=== PATIENT | male | born 1980 | race Caucasian/White ===

== ENCOUNTER 2019-09-22 12:46 | Emergency (ER) | payer BC ==
[~2019-09-22] VITALS: Ht 175.3 cm; Wt 122.5 kg
[2019-09-22 12:52] VITALS: BP 185/110
--- NOTE | 2019-09-22 13:06 | NUR ---
39 Y/O M C/O RIGHT FLANK PAIN. PT STATES HE FEELS HE HAS A KIDNEY STONE, PREVIOUS KIDNEY STONES IN THE PAST. NO PAIN WITH URINATION, OR BLOOD X1 DAY. PT POSITIONED FOR COMFORT, BED LOWERED, SIDE RAIL IN PLACE. FRIEND AT BEDSIDE. PRISCILLA
[2019-09-22] MEDS ORDERED: KETOROLAC 30 MG/ML VIAL IM/IVP ONE (13:15)
[2019-09-22] MEDS ORDERED: NACL 0.9% 1,000 ML IV ONE (13:15)
[2019-09-22] MEDS ORDERED: ONDANSETRON 4 MG/2 ML VIAL IVP ONE (13:15)
[2019-09-22] MEDS ORDERED: MORPHINE SULFATE 4 MG/ML SYR IVP ONE (13:15)
--- NOTE | 2019-09-22 13:24 | NUR ---
UTRASOUND AT BEDSIDE.
[2019-09-22 14:14] LABS: BASOPHILS % (AUTO) 0.6 % (0.0-2.0); EOSINOPHILS # (AUTO) 0.1 K/uL (0-0.4); EOSINOPHILS % (AUTO) 0.8 % (0.0-4.0); HEMATOCRIT 42.4 % (36-52); HEMOGLOBIN 14.4 g/dL (12.0-18.0); LYMPHOCYTES # (AUTO) 1.7 K/uL (2.0-11.5); LYMPHOCYTES % (AUTO) 20.7 % (20.5-51.1); MEAN CORPUSCULAR HEMOGLOBIN 33 pg (27-31); MEAN CORPUSCULAR HGB CONC 34 g/dL (33-37); MEAN CORPUSCULAR VOLUME 98.1 fL (80-94); MONOCYTES # (AUTO) 0.5 K/uL (0.8-1.0); MONOCYTES % (AUTO) 6.5 % (1.7-9.3); NEUTROPHILS % (AUTO) 71.4 % (42.2-75.2); PLATELET COUNT (AUTO) 255 K/uL (140-450); RED BLOOD CELL COUNT(AUTO) 4.32 MIL/uL (4.20-6.10); RED CELL DISTRIBUTION WIDTH 12.5 % (11.6-13.7); WHITE BLOOD COUNT (AUTO) 8.4 K/uL (4.8-10.8)
[2019-09-22 14:16] LABS: APPEARANCE,URINE CLEAR (CLEAR); BILIRUBIN,URINE 1+ (NEGATIVE); BLOOD, URINE 3+ (NEGATIVE); LEUKOCYTE ESTERASE ,URINE NEGATIVE (NEGATIVE); NITRITE, URINE NEGATIVE (NEGATIVE); UGLUCOSE NEGATIVE (NEGATIVE)
[2019-09-22 14:19] LABS: COLOR,URINE AMBER (YELLOW)
[2019-09-22 14:27] LABS: CALCIUM OXALATE CRYSTALS,UR 0-10 /HPF (None Seen); WBC,URINE 0-5 /HPF (0-5)
[2019-09-22 14:29] LABS: ANION GAP 9.5 (8-16); CARBON DIOXIDE 29.5 mmol/L (21-32)
[2019-09-22 14:35] LABS: ALBUMIN 3.8 g/dL (3.4-5.0); TOTAL BILIRUBIN 0.6 mg/dL (0.0-1.0)
[2019-09-22 15:32] VITALS: BP 145/90
--- NOTE | 2019-09-22 15:33 | NUR ---
Patient discharged with v/s stable. Written and verbal after care instructions given and explained. Patient alert, oriented and verbalized understanding of instructions. Ambulatory with steady gait. All questions addressed prior to discharge. ID band removed. Patient advised to follow up with PMD. Rx of FLOMAX/PERCOCET/IBUPROFEN/ZOFRAN given. Patient educated on indication of medication including possible reaction and side effects. Opportunity to ask questions provided and answered.
== END 2019-09-22 15:33 | disposition home or self-care (01) ==
LOC: MED 12:46
DX: N20.0 Calculus of kidney (principal)
CPT/HCPCS: 36415; 76770; 80053; 81001; 85025; 96374; 96375; 99284; J1885; J2270; J2405; J7030; Q0092

== ENCOUNTER 2021-08-08 17:39 | Inpatient (IN) | payer BC ==
[~2021-08-08] VITALS: Ht 175.3 cm; Wt 129.3 kg
[2021-08-08 17:49] VITALS: BP 158/96
--- NOTE | 2021-08-08 17:58 | NUR ---
40 Y/O M C/O R LOWER BACK PAIN 06/25. PATIENT SAID HE PASSED A LOT OF KIDNEY STONES IN THE PAST 2 DAYS. NKA.
--- NOTE | 2021-08-08 18:18 | NUR ---
PT TO [facility] W/O ASST UA CUP GIVEN
[2021-08-08] MEDS ORDERED: NACL 0.9% 1,000 ML IV ONE ×3 (18:20→22:10)
--- NOTE | 2021-08-08 18:28 | NUR ---
LAB AT BEDSIDE.
[2021-08-08] MEDS ORDERED: MORPHINE SULFATE 4 MG/ML SYR IVP ONE ×3 (18:30→22:15)
[2021-08-08] MEDS ORDERED: ONDANSETRON 4 MG/2 ML VIAL IVP ONE (18:30)
[2021-08-08 18:37] LABS: APPEARANCE,URINE CLEAR (CLEAR); BILIRUBIN,URINE NEGATIVE (NEGATIVE); BLOOD, URINE 3+ (NEGATIVE); COLOR,URINE YELLOW (YELLOW); LEUKOCYTE ESTERASE ,URINE NEGATIVE (NEGATIVE); NITRITE, URINE NEGATIVE (NEGATIVE); UGLUCOSE NEGATIVE (NEGATIVE)
[2021-08-08 18:37] LABS: BASOPHILS % (AUTO) 0.5 % (0.0-2.0); EOSINOPHILS % (AUTO) 0.4 % (0.0-4.0); HEMOGLOBIN 14.7 g/dL (12.0-18.0); LYMPHOCYTES # (AUTO) 1.9 K/uL (2.0-11.5); LYMPHOCYTES % (AUTO) 21.4 % (20.5-51.1); MEAN CORPUSCULAR HEMOGLOBIN 34 pg (27-31); MEAN CORPUSCULAR HGB CONC 35 g/dL (33-37); MEAN CORPUSCULAR VOLUME 96.1 fL (80-94); MONOCYTES # (AUTO) 0.4 K/uL (0.8-1.0); MONOCYTES % (AUTO) 4.6 % (1.7-9.3); NEUTROPHILS # (AUTO) 6.6 K/uL (1.8-7.7); NEUTROPHILS % (AUTO) 73.1 % (42.2-75.2); PLATELET COUNT (AUTO) 302 K/uL (140-450); RED BLOOD CELL COUNT(AUTO) 4.37 MIL/uL (4.20-6.10); RED CELL DISTRIBUTION WIDTH 12.4 % (11.6-13.7); WHITE BLOOD COUNT (AUTO) 9.1 K/uL (4.8-10.8)
[2021-08-08 18:48] LABS: RBC,URINE >100 /HPF (0-5); WBC,URINE NONE SEEN /HPF (0-5)
[2021-08-08 18:57] LABS: ALBUMIN 4.3 g/dL (3.4-5.0); ANION GAP 15.6 (8-16); CARBON DIOXIDE 26.4 mmol/L (21-32); TOTAL BILIRUBIN 0.6 mg/dL (0.0-1.0)
[2021-08-08] MEDS ORDERED: KETOROLAC 15 MG/ML VIAL IVP ONE ×2 (19:05→22:15)
[2021-08-08] MEDS ORDERED: KETOROLAC 30 MG/ML VIAL ONE ×2 (19:08→22:16)
--- NOTE | 2021-08-08 19:20 | NUR ---
RECEIVED REPORT FROM SARITA DIAS.
--- NOTE | 2021-08-08 19:22 | NUR ---
REPORT GIVEN TO DONALD DIAS.
--- NOTE | 2021-08-08 19:22 | NUR ---
CT AT BEDSIDE.
--- NOTE | 2021-08-08 19:30 | NUR ---
PT BACK FROM CT
--- NOTE | 2021-08-08 20:23 | NUR ---
PT AMBULATED TO RESTROOM.
[2021-08-08] MEDS ORDERED: fentaNYL citrate 0.05 MG/ML VIAL IVP ONE (20:35)
[2021-08-08] MEDS ORDERED: HYDROmorphone PFS 2 MG/ML SYR IVP ONE (22:10)
[2021-08-08] MEDS ORDERED: TAMSULOSIN 0.4 MG CAP ONE (22:18)
--- NOTE | 2021-08-08 22:21 | NUR ---
PT STATES PAIN 06/25. DR. PAYTON TO PUT IN MED ORDER, SEE EMAR.
[2021-08-08] MEDS ORDERED: TAMSULOSIN 0.4 MG CAP PO ONE (22:25)
[2021-08-08] MEDS ORDERED: NACL 0.9% 1,000 ML IV SCH (22:35)
[2021-08-08] MEDS ORDERED: ONDANSETRON 4 MG/2 ML VIAL IM/IVP PRN (23:40)
[2021-08-08] MEDS ORDERED: ZOLPIDEM 5 MG TAB PO PRN (23:40)
[2021-08-08] MEDS ORDERED: ACETAMINOPHEN 325 MG TAB PO PRN (23:40)
[2021-08-08] MEDS ORDERED: POTASSIUM CHLORIDE 10 MEQ TABER PO PRN (23:40)
[2021-08-08] MEDS ORDERED: HYDROcodone/APAP 7.5/325 MG 1 TAB PO PRN (23:40)
[2021-08-08] MEDS ORDERED: DOCUSATE SODIUM 100 MG GELCAP PO PRN (23:40)
[2021-08-08] MEDS ORDERED: guaiFENesin DM 200/20 MG-10 ML 10 ML UDC PO PRN (23:40)
[2021-08-08] MEDS ORDERED: MORPHINE SULFATE 2 MG/ML SYR IVP PRN (23:45)
--- NOTE | 2021-08-08 23:49 | NUR ---
REPORT CALLED TO LARISSA VERMA. PT ADMITTED TO SERVICES OF DR. KELLER [facility]/S [facility]ARE. PT TAKEN TO 105B VIA W/C.
[2021-08-09 00:10] VITALS: BP 152/98
--- NOTE | 2021-08-09 00:10 | NUR ---
Admitted from ER TO [facility], with chief complaint of RIGHT LOWER BACK PAIN SINCE TWO DAYS AGO, WITH NOTED HEMATURIA BUT NONE AT THIS TIME. 40 y/o ,Male, Cooperative, AWAKE, A/OX4. RESPIRATION EVEN AND UNLABORED, 02 SATURATION 100% ON ROOM AIR. INDEPENDENT, ABLE TO AMBULATE BY HIMSELF TO THE BR. VERBALIZED PAIN IN THE BACK IS CONSTANT AT THIS TIME, 06/25. WILL MEDICATE PER MD ORDER. HEAD TO TOE ASSESSMENT DONE WITH CHARGE NURSE DELMER, SKIN IS INTACT.oriented to call light, bed, phone,television, bathroom, smoking policy,visiting hours, procedures, ID bracelet on. Belongings list checked.
[2021-08-09] MEDS: NACL 0.9% 1,000 ML IV SCH ×6 (00:14→23:30)
[2021-08-09 00:18] LABS: CHOL/HDL RATIO 3.4 (1-4.5); FREE T4 (FREE THYROXINE) 0.98 ng/dL (0.76-1.46); MAGNESIUM 1.9 mg/dL (1.8-2.4); PHOSPHORUS 3.1 mg/dL (2.5-4.9); THYROID STIMULATING HORMONE 1.08 uIU/mL (0.34-3.74)
[2021-08-09 00:26] LABS: PROTHROMBIN TIME 10.1 secs (10.8-13.4)
[2021-08-09 00:39] LABS: BARBITURATE, URINE NEGATIVE ng/ml (NEG <=200); BENZODIAZEPINE, URINE NEGATIVE ng/mL (NEG <=200); CANNABINOID, URINE POSITIVE ng/mL (NEG <=50); COCAINE, URINE NEGATIVE ng/mL (NEG <=300); OPIATE, URINE NEGATIVE ng/mL (NEG <=2000); PHENCYCLIDINE SCREEN,URINE NEGATIVE ng/mL (NEG <=25)
--- NOTE | 2021-08-09 00:40 | NUR ---
URINAL AND URINE STRAINER PLACED IN THE BR. INSTRUCTED PATIENT THAT ALL HIS URINE SHOULD BE STRAINED TO DETERMINE IF HE WILL BE ABLE TO PASS OUT HIS KIDNEY STONES. VERBALIZED UNDERSTANDING.
--- NOTE | 2021-08-09 01:50 | NUR ---
RESTING IN BED, DENIES PAIN AT THIS TIME, 0. INSTRUCTED TO CALL NURSE IF EVER NEEDING HELP.
--- NOTE | 2021-08-09 03:50 | NUR ---
CHECKED PATIENT, RESTING IN BED. VERBALIZED HE VOIDED WITH SOME BLOOD IN IT AND STRAIN THE URINE.
[2021-08-09 04:00] VITALS: BP 149/94
--- NOTE | 2021-08-09 06:00 | NUR ---
CHECKED URINE STRAINER, NO NOTED STONE. ENCOURAGED TO DRINK MORE WATER AND CRANBERRY JUICES.
[2021-08-09 07:03] LABS: BASOPHILS % (AUTO) 0.4 % (0.0-2.0); EOSINOPHILS % (AUTO) 0.2 % (0.0-4.0); HEMATOCRIT 41.4 % (36-52); HEMOGLOBIN 14.2 g/dL (12.0-18.0); LYMPHOCYTES % (AUTO) 17.9 % (20.5-51.1); MEAN CORPUSCULAR HEMOGLOBIN 33 pg (27-31); MEAN CORPUSCULAR HGB CONC 34 g/dL (33-37); MEAN CORPUSCULAR VOLUME 95.9 fL (80-94); MONOCYTES # (AUTO) 0.9 K/uL (0.8-1.0); MONOCYTES % (AUTO) 7.9 % (1.7-9.3); NEUTROPHILS # (AUTO) 8.3 K/uL (1.8-7.7); NEUTROPHILS % (AUTO) 73.6 % (42.2-75.2); PLATELET COUNT (AUTO) 304 K/uL (140-450); RED BLOOD CELL COUNT(AUTO) 4.31 MIL/uL (4.20-6.10); RED CELL DISTRIBUTION WIDTH 12.6 % (11.6-13.7); WHITE BLOOD COUNT (AUTO) 11.2 K/uL (4.8-10.8)
--- NOTE | 2021-08-09 07:04 | NUR ---
CONDITION REMAIN STABLE. ENDORSED TO AM SHIFT NURSE FOR CONTINUITY OF CARE.
--- NOTE | 2021-08-09 07:05 | NUR ---
RECEIVED REPORT FROM [employer] PUBLISHER NURSE FOR CONTINUITY OF CARE. PT. AWAKE AND ALERT NO ACUTE DISTRESS NOTED. PT. HAS RIGHT HAND 20 G RUNNING NS AT 175 ML/HOUR. CALL LIGHT WITH IN REACH . ALL SAFETY MEASURE IN PLACE. WILL CONTINUE TO MONITOR.
[2021-08-09 07:20] LABS: ANION GAP 12.7 (8-16); CARBON DIOXIDE 26.3 mmol/L (21-32); CREATININE 1.1 mg/dL (0.6-1.3)
--- NOTE | 2021-08-09 07:46 | NUR ---
PATIENT HAS BEEN SCREENED AND CATEGORIZED LOW NUTRITION RISK. PATIENT WILL BE SEEN WITHIN 7 DAYS OF ADMISSION. 08/15/[address]
[2021-08-09 08:00] VITALS: BP 149/83
[2021-08-09] MEDS ORDERED: TAMSULOSIN 0.4 MG CAP PO SCH (08:30)
[2021-08-09] MEDS: PANTOPRAZOLE 40 MG TABEC PO SCH (08:43)
--- NOTE | 2021-08-09 08:43 | NUR ---
PT. ALERT NOT ON ANY DISTRESS. VISITOR AT BED SIDE. GIVEN ALL DUE MEDICATION ORDERED TOLERATED WELL. SAFETY MEASURE IN PLACE. CALL LIGHT WITH IN EASY REACH. WILL CONTINUE TO MONITOR.
[2021-08-09] MEDS: lisinopriL 20 MG TAB PO SCH (08:44)
[2021-08-09] MEDS: TAMSULOSIN 0.4 MG CAP PO SCH (09:44)
--- NOTE | 2021-08-09 10:29 | NUR ---
PATIENT AWAKE AND ALERT. NO DISTRESS NOTED. VISITOR AT BED SIDE. PATIENT ON 2 L NC. PATIENT SATING O2 98%. SAFETY MEASURE IN PLACE. CALL LIGHT WITHIN REACH. WILL CONTINUE TO MONITOR. Addendum: 08/09/21 at 1406 by Lupe Moraes RN RN PATIENT ON ROOM AIR. NO DISTRESS NOTED.
--- NOTE | 2021-08-09 12:12 | NUR ---
PATIENT SLEEPING. BREATHING EVEN AND UNLABORED. NO DISTRESS NOTED. PATIENT ON 2 L NC. PATIENT SATING O2 99%. SAFETY MEASURE IN PLACE. CALL LIGHT WITHIN REACH. WILL CONTINUE TO MONITOR. Addendum: 08/09/21 at 1406 by Lupe Moraes RN RN PATIENT ON ROOM AIR. NO DISTRESS NOTED
--- NOTE | 2021-08-09 14:04 | NUR ---
PATIENT AWAKE AND ALERT. NO DISTRESS NOTED. PATIENT ON 2 L NC. PATIENT SATING O2 98%. SAFETY MEASURE IN PLACE. CALL LIGHT WITHIN REACH. WILL CONTINUE TO MONITOR. Addendum: 08/09/21 at 1407 by Lupe Moraes RN RN PATIENT ON ROOM AIR. NO DISTRESS NOTED
--- NOTE | 2021-08-09 14:30 | NUR ---
DC PLANN[age] YRS OLD MALE PATIENT WAS ADMITTED FROM HOME WITH A DX OF KIDNEY STONE. PT HAS A HX OF KIDNEY STONE, ABDOMINAL HERNIA REPAIR AND ALSO HAD CYSTOSCOPY WITH STENT PLACEMENT. CT ABD SHOWED MILDLY OBSTRUCTING 3MM STONE AND RENAL CYST. ADMINISTERED IVF, IV ABX ROCEPHIN AND CONTINUED HOME MEDS. CONSULTED WITH UROLOGIST. DC PLAN TO GO HOME WHEN STABLE CM TO FOLLOW.
--- NOTE | 2021-08-09 15:00 | NUR ---
PT CALLED THAT HE PASSED KIDNEY STONE WHEN CHECKED THE STRAINER IT HAS MALL BROWN COLORED STONE. DENIES PAIN. SAFETY MEASURE IN PLACE . CALL LIGHT WITH IN EASY REACH. WILL CONTINUE TO MONITOR.
--- NOTE | 2021-08-09 16:25 | NUR ---
PATIENT AWAKE AND ALERT. NO DISTRESS NOTED. VISITOR AT BEDSIDE. SAFETY MEASURE IN PLACE. CALL LIGHT WITHIN REACH. WILL CONTINUE TO MONITOR.
--- NOTE | 2021-08-09 18:22 | NUR ---
PATIENT AWAKE AND ALERT. NO DISTRESS NOTED. VISITOR AT BEDSIDE. SAFETY MEASURE IN PLACE. CALL LIGHT WITHIN REACH. WILL CONTINUE TO MONITOR.
--- NOTE | 2021-08-09 19:27 | NUR ---
PT ALERT AND ORIENTED GAVE REPORT TO NIGHT NURSE FOR CONTINUITY OF CARE.
--- NOTE | 2021-08-09 19:28 | NUR ---
RECD. RESTING IN BED, AWAKE, A/OX4, WATCHING TV. RESPIRATION EVEN AND UNLABORED. IV OF NS INFUSING AT 175 ML/HR, RIGHT HAND G20. VERBALIZED FEELING MUCH BETTER TODAY, DECREASED EPISODES OF LOWER BACK PAIN AFTER PASSING ONE STONE. MEDICATIONS FOR THE NIGHT DISCUSSED WITH PATIENT. VERBALIZED UNDERSTANDING. WANTS SLEEPING PILL TONIGHT. WILL MEDICATE PER MD ORDER. DENIES PAIN, 0/10.
[2021-08-09 20:00] VITALS: BP 113/64
--- NOTE | 2021-08-09 21:00 | NUR ---
RESTING IN BED, WATCHING TV. RESPIRATION EVEN AND UNLABORED. CRANBERRY JUICES GIVEN. ENCOURAGED TO DRINK MORE FLUIDS FOR HYDRATION.
--- NOTE | 2021-08-09 23:31 | NUR ---
UNABLE TO SLEEP, MEDICATED WITH AMBIEN PER MD ORDER.
--- NOTE | 2021-08-10 00:01 | NUR ---
Patient's Plan of Care was discussed and reviewed with OXIDATION OPERATOR: BAYRON STEVENS
--- NOTE | 2021-08-10 00:30 | NUR ---
STILL AWAKE IN BED, WITH HIS CELLPHONE IN HAND, NO COMPLAINT OF PAIN 0/10.
--- NOTE | 2021-08-10 02:30 | NUR ---
SLEEPING COMFORTABLY IN BED. RESPIRATION EVEN AND UNLABORED.
[2021-08-10 04:00] VITALS: BP 122/76
[2021-08-10] MEDS: NACL 0.9% 1,000 ML IV SCH (04:15)
--- NOTE | 2021-08-10 04:30 | NUR ---
ON HIS RIGHT SIDE STILL SLEEPING COMFORTABLY.RESPIRATION EVEN AND UNLABORED. CALL LIGHT IN REACH.
--- NOTE | 2021-08-10 05:30 | NUR ---
AWAKE IN BED, VERBALIZED HE IS CANNOT SLEEP ANYMORE WITH DIFFERENT STAFF GOING IN AND OUT OF HIS ROOM. VERY EAGER TO GO HOME. VOIDING WELL. NO COMPLAINT OF LOWER BACK PAIN UNTIL THIS TIME.
[2021-08-10 06:07] LABS: T4 (THYROXINE) 8.8 ug/dL (4.5-12.0)
[2021-08-10 07:00] LABS: ANION GAP 11.2 (8-16); CARBON DIOXIDE 27.5 mmol/L (21-32); CREATININE 0.9 mg/dL (0.6-1.3); POTASSIUM 3.7 mmol/L (3.5-5.1)
--- NOTE | 2021-08-10 07:15 | NUR ---
CONDITION REMAIN STABLE. ENDORSED TO AM SHIFT NURSE FOR CONTINUITY OF CARE.
[2021-08-10 07:22] LABS: BASOPHILS % (AUTO) 0.4 % (0.0-2.0); EOSINOPHILS # (AUTO) 0.1 K/uL (0-0.4); EOSINOPHILS % (AUTO) 1.2 % (0.0-4.0); HEMATOCRIT 37.8 % (36-52); HEMOGLOBIN 13.2 g/dL (12.0-18.0); LYMPHOCYTES # (AUTO) 2.6 K/uL (2.0-11.5); LYMPHOCYTES % (AUTO) 32.4 % (20.5-51.1); MEAN CORPUSCULAR HEMOGLOBIN 34 pg (27-31); MEAN CORPUSCULAR HGB CONC 35 g/dL (33-37); MEAN CORPUSCULAR VOLUME 96.3 fL (80-94); MONOCYTES # (AUTO) 0.7 K/uL (0.8-1.0); MONOCYTES % (AUTO) 8.1 % (1.7-9.3); NEUTROPHILS # (AUTO) 4.7 K/uL (1.8-7.7); NEUTROPHILS % (AUTO) 57.9 % (42.2-75.2); PLATELET COUNT (AUTO) 272 K/uL (140-450); RED BLOOD CELL COUNT(AUTO) 3.93 MIL/uL (4.20-6.10); RED CELL DISTRIBUTION WIDTH 12.3 % (11.6-13.7); WHITE BLOOD COUNT (AUTO) 8.1 K/uL (4.8-10.8)
--- NOTE | 2021-08-10 07:41 | NUR ---
Patient awake,alert and oriented. Able to verbalize needs and currently not having pain. Safety measures in place and patient has no further needs.
[2021-08-10] MEDS: TAMSULOSIN 0.4 MG CAP PO SCH (09:37)
[2021-08-10] MEDS: PANTOPRAZOLE 40 MG TABEC PO SCH (09:37)
[2021-08-10] MEDS: lisinopriL 20 MG TAB PO SCH (09:38)
[2021-08-10] MEDS ORDERED: LISI-487 PO (10:17)
[2021-08-10] MEDS ORDERED: IBUP-2213 PO (10:17)
[2021-08-10] MEDS ORDERED: TAMS0.4C96 PO (10:17)
[2021-08-10] MEDS ORDERED: CEPH-588 PO (10:17)
[2021-08-10 10:23] VITALS: BP 144/80
== END 2021-08-10 10:55 | disposition home or self-care (01) | DRG 694 ==
LOC: MED 17:39 → MTU 22:32
PROVIDERS: ADMIT Family Medicine; ATTEND Family Medicine
DX: N13.2 Hydronephrosis with renal and ureteral calculous obstruction (principal); E86.0 Dehydration; R74.01 Elevation of levels of liver transaminase levels; F17.210 Nicotine dependence, cigarettes, uncomplicated; E78.5 Hyperlipidemia, unspecified; I10 Essential (primary) hypertension; Z82.49 Family history of ischemic heart disease and other diseases of the circulatory system
CPT/HCPCS: 36415; 80048; 80053; 80305; 81001; 82150; 83036; 83690; 83735; 83880; 84100; 84436; 84439; 84443; 84479; 84484; 85025; 85610; 85730; 87081; 96374; 96375; 96376; 99285; J0696; J1885; J2270; J2405; J3010; J7060